=== PATIENT | male | born 1955 | race Caucasian/White ===

== ENCOUNTER 2017-09-04 18:54 | Emergency (ER) | payer MEDICAID ==
[~2017-09-04] VITALS: Ht 180.3 cm; Wt 79.5 kg
[~2017-09-04 18:54] MED LIST: ALBU8.5H8 IH; AZIT250T PO; CARI250T PO; CEPH-571 PO; CHLO118M PO; HYDR-569 PO; METH4TAB3 PO; METH500T PO; PRED10TA PO; TRAM50TA2 PO
[2017-09-04] MEDS ORDERED: ondansetron/PF 4mg/2ml inj IV ONE (19:30)
[2017-09-04] MEDS ORDERED: morphine 5 MG/ML injection IV ONE (19:30)
[2017-09-04] MEDS ORDERED: propofol 10mg/ml 20ml vial IV ONE (20:55)
[2017-09-04] MEDS ORDERED: ketamine 50 mg/ml 10ml vial IV ONE (20:55)
[2017-09-04] MEDS ORDERED: HYDROmorphone 1 mg/ml syringe IV ONE (21:05)
[2017-09-04] MEDS ORDERED: HYDR-3965 PO (21:58)
[2017-09-04 22:24] VITALS: BP 133/94
== END 2017-09-04 22:33 | disposition home or self-care (01) ==
LOC: ER 18:55
DX: S82.431A Displaced oblique fracture of shaft of right fibula, initial encounter for closed fracture (principal); S82.301A Unspecified fracture of lower end of right tibia, initial encounter for closed fracture; G89.29 Other chronic pain; Z79.899 Other long term (current) drug therapy; Z59.0 Homelessness; V19.9XXA Pedal cyclist (driver) (passenger) injured in unspecified traffic accident, initial encounter; Y93.55 Activity, bike riding; Y92.488 Other paved roadways as the place of occurrence of the external cause; Y99.8 Other external cause status
CPT/HCPCS: 27752; 73590; 73600; 94760; 96374; 96375; 99285; A6449; J1170; J2270; J2405; J2704; A4620

== ENCOUNTER 2017-09-08 13:15 | Emergency (ER) | payer MEDICAID ==
[~2017-09-08] VITALS: Ht 180.3 cm; Wt 79.5 kg
[~2017-09-08 13:15] MED LIST changes: +HYDR-3965 PO
[2017-09-08] MEDS ORDERED: HYDR-3965 PO (13:40)
[2017-09-08] MEDS ORDERED: ONDA4TAB9 PO (13:40)
[2017-09-08 16:09] VITALS: BP 130/80
[2017-09-12] MEDS ORDERED: BACDS PO (19:00)
== END 2017-09-08 16:12 | disposition home or self-care (01) ==
LOC: ER 13:17
DX: S82.871D Displaced pilon fracture of right tibia, subsequent encounter for closed fracture with routine healing (principal); S82.831D Other fracture of upper and lower end of right fibula, subsequent encounter for closed fracture with routine healing; G89.29 Other chronic pain; Z59.0 Homelessness; Z79.899 Other long term (current) drug therapy; V19.9XXD Pedal cyclist (driver) (passenger) injured in unspecified traffic accident, subsequent encounter
CPT/HCPCS: 29505; 73590; 99284; A6449

== ENCOUNTER 2017-09-16 13:44 | Outpatient (CLI) | payer MEDICAID ==
[2017-09-16 13:44] VITALS: BP 127/73
[~2017-09-16 13:44] MED LIST changes: +BACDS PO; +ONDA4TAB9 PO
== END 2017-09-16 15:00 | disposition home or self-care (01) ==
LOC: ORTHO 13:44
PROVIDERS: ATTEND Nurse Practitioner Family
DX: S82.241A Displaced spiral fracture of shaft of right tibia, initial encounter for closed fracture (principal); S82.831A Other fracture of upper and lower end of right fibula, initial encounter for closed fracture; B19.20 Unspecified viral hepatitis C without hepatic coma; F41.9 Anxiety disorder, unspecified; J44.9 Chronic obstructive pulmonary disease, unspecified; F12.90 Cannabis use, unspecified, uncomplicated; R29.6 Repeated falls; F17.210 Nicotine dependence, cigarettes, uncomplicated; Z72.89 Other problems related to lifestyle; Z59.0 Homelessness; Z79.899 Other long term (current) drug therapy; X58.XXXA Exposure to other specified factors, initial encounter; Y93.89 Activity, other specified; Y92.89 Other specified places as the place of occurrence of the external cause; Y99.8 Other external cause status
CPT/HCPCS: 29505; A6449

== ENCOUNTER 2017-09-29 11:39 | Observation (INO) | payer MEDICAID ==
[2017-09-28 13:49] LABS: BASOPHILS % (AUTO) 0.5 % (0-1); EOSINOPHILS # (AUTO) 0.3 X10'3 (0-0.9); EOSINOPHILS % (AUTO) 4.3 % (0-6); LYMPHOCYTES # (AUTO) 2.8 X10'3 (1.1-4.8); LYMPHOCYTES % (AUTO) 36.2 % (21-51); MEAN CORPUSCULAR HEMOGLOBIN 32.1 PG (27.0-31.0); MEAN CORPUSCULAR HGB CONC 35.1 % (33.0-36.5); MEAN CORPUSCULAR VOLUME 91.4 FL (78-98); MEAN PLATELET VOLUME 8.8 FL (7.4-10.4); MONOCYTES # (AUTO) 0.5 X10'3 (0-0.9); MONOCYTES % (AUTO) 6.9 % (2-12); NEUTROPHILS % (AUTO) 52.1 % (42-75); PRE OP HEMATOCRIT 45.6 % (42.0-52.0); PRE OP PLATELET COUNT 235 X10'3 (140-440); RED BLOOD COUNT 4.99 X10'6 (4.70-6.10); RED CELL DISTRIBUTION WIDTH 13.5 % (11.5-14.5)
[2017-09-28 14:06] LABS: ALBUMIN 2.9 G/DL (3.4-5.0); ALBUMIN/GLOBULIN RATIO 0.7 (1.1-1.5); ALKALINE PHOSPHATASE 199 IU/L (46-116); BLOOD UREA NITROGEN 11 MG/DL (7-18); BUN/CREATININE RATIO 12.2 (5.4-32.0); CHLORIDE 111 MMOL/L (99-107); PRE OP ALT 65 U/L (30-65); PRE OP ANION GAP 9 (8-16); PRE OP AST 45 U/L (10-37); PRE OP BILIRUB, TOTAL 0.7 MG/DL (0.0-1.0); PRE OP GLUCOSE 103 MG/DL (70-104); PRE OP POTASSIUM 3.8 MMOL/L (3.4-5.1); PRE OP SODIUM 144 MMOL/L (135-145); TOTAL CARBON DIOXIDE 24.5 MMOL/L (24-32); TOTAL PROTEIN 7.2 G/DL (6.4-8.2); eGFR 86 ML/MIN
[2017-09-29] VITALS (15 sets, daily range): BP systolic 100–146; BP diastolic 67–95
[~2017-09-29] VITALS: Ht 180.3 cm; Wt 79.5 kg
[~2017-09-29 11:39] MED LIST changes: -BACDS PO; +VANCOMYCIN INJ 1000 MG in NORMAL SALINE 250ml IV.SOLN IV ONE; +cefazolin/dext.iso 2gm/50ml 50 ML IV ONE; +famotidine 20mg tablet PO ONE
[2017-09-29] MEDS ORDERED: sevoflurane 250ml liquid IH ONE (12:42)
[2017-09-29] MEDS ORDERED: fentaNYL/PF 50MCG/1 ML 2ML syringe ONE ×2 (12:47→14:41)
[2017-09-29] MEDS ORDERED: midazolam 2 mg/2 ml injection ONE (12:47)
[2017-09-29] MEDS ORDERED: ceFAZolin 1000mg inj ONE (12:48)
[2017-09-29] MEDS ORDERED: BUPIVAcaine 0.5% inj/PF 30 ML ONE (12:48)
[2017-09-29] MEDS ORDERED: propofol inj 20 ML IV ONE (12:56)
[2017-09-29] MEDS ORDERED: rocuronium 10mg/ml inj IV ONE (12:57)
[2017-09-29] MEDS ORDERED: BUPIVAcaine 0.5% inj/PF 30 ml vial IJ ONE (13:33)
[2017-09-29] MEDS ORDERED: ringers solution, lacted 1,000 ML IV SCH (13:36)
[2017-09-29] MEDS ORDERED: proCHLORperazine 10 MG/2 ml inj IV PRN (13:40)
[2017-09-29] MEDS ORDERED: morphine 2 MG/ML inj. syringe IV PRN (13:40)
[2017-09-29] MEDS ORDERED: meperidine/PF 25mg/ml syringe IV PRN ×3 (13:40)
[2017-09-29] MEDS ORDERED: ondansetron/PF 4mg/2ml inj IV PRN (13:40)
[2017-09-29] MEDS ORDERED: ketorolac trometh. 30mg/ml inj. ONE (14:48)
[2017-09-29] MEDS ORDERED: morphine 8mg/ml inj. syringe ONE (15:19)
[2017-09-29] MEDS ORDERED: cyclobenzaprine 10mg tablet PO PRN (15:20)
[2017-09-29] MEDS: morphine 2 MG/ML inj. syringe IV PRN ×2 (15:26→15:36)
[2017-09-29] MEDS ORDERED: dextrose 5%-1/2 normal saline 1,000 ML IV SCH (19:20)
[2017-09-29] MEDS ORDERED: morphine 5 MG/ML injection IV PRN ×2 (19:55)
[2017-09-29] MEDS ORDERED: HYDROcodone/acetaminophen 10/325mg tab PO PRN (19:55)
[2017-09-29] MEDS: traMADol 50MG tablet PO SCH (20:00)
[2017-09-29] MEDS: vancomycin/NS 1 GM ADD-VANTAGE 250 ML IV SCH (20:54)
[2017-09-29] MEDS: HYDROcodone/acetaminophen 10/325mg tab PO PRN (21:01)
[2017-09-30] MEDS: HYDROcodone/acetaminophen 10/325mg tab PO PRN ×3 (00:53→10:38)
[2017-09-30] MEDS: cefazolin 1gm/NS 100mL 100 ML IV SCH ×2 (00:54→08:14)
[2017-09-30 02:00] VITALS: BP 130/82
[2017-09-30] MEDS: traMADol 50MG tablet PO SCH ×2 (02:00→08:13)
[2017-09-30 06:00] VITALS: BP 122/82
[2017-09-30] MEDS: vancomycin/NS 1 GM ADD-VANTAGE 250 ML IV SCH (08:48)
[2017-09-30] MEDS ORDERED: WALKERFR (09:46)
== END 2017-09-30 11:30 | disposition home or self-care (01) ==
LOC: PAS 11:39 → ORTHO 4S 18:14
PROVIDERS: ADMIT Orthopaedic Surgery; ATTEND Orthopaedic Surgery
DX: S82.301A Unspecified fracture of lower end of right tibia, initial encounter for closed fracture (principal); S82.201A Unspecified fracture of shaft of right tibia, initial encounter for closed fracture; S82.401A Unspecified fracture of shaft of right fibula, initial encounter for closed fracture; B19.20 Unspecified viral hepatitis C without hepatic coma; G89.29 Other chronic pain; M54.9 Dorsalgia, unspecified; J44.9 Chronic obstructive pulmonary disease, unspecified; G43.909 Migraine, unspecified, not intractable, without status migrainosus; M19.90 Unspecified osteoarthritis, unspecified site; F41.9 Anxiety disorder, unspecified; X58.XXXA Exposure to other specified factors, initial encounter; Y93.89 Activity, other specified; Y92.89 Other specified places as the place of occurrence of the external cause; Y99.8 Other external cause status
CPT/HCPCS: 27827; 36415; 71046; 80053; 85025; 87070; 96365; 96366; 96368; 96375; 96376; 97116; 97161; G0378; J0690; J1885; J2250; J2270; J2704; J3010; J3370; J3490; J7120; A7000

== ENCOUNTER 2017-10-09 10:35 | Outpatient (CLI) | payer MEDICAID ==
[~2017-10-09 10:35] MED LIST changes: -VANCOMYCIN INJ 1000 MG in NORMAL SALINE 250ml IV.SOLN IV ONE; +WALKERFR; -cefazolin/dext.iso 2gm/50ml 50 ML IV ONE; -famotidine 20mg tablet PO ONE
[2017-10-09 10:44] VITALS: BP 151/86
== END 2017-10-09 11:40 | disposition home or self-care (01) ==
LOC: ORTHO 10:35
PROVIDERS: ATTEND Nurse Practitioner Family
DX: S82.441D Displaced spiral fracture of shaft of right fibula, subsequent encounter for closed fracture with routine healing (principal); S82.101D Unspecified fracture of upper end of right tibia, subsequent encounter for closed fracture with routine healing; F17.210 Nicotine dependence, cigarettes, uncomplicated; B19.20 Unspecified viral hepatitis C without hepatic coma; F32.9 Major depressive disorder, single episode, unspecified; Z59.0 Homelessness; Z98.890 Other specified postprocedural states; Z56.0 Unemployment, unspecified; X58.XXXD Exposure to other specified factors, subsequent encounter
CPT/HCPCS: 29515; A6446; A6449

== ENCOUNTER 2017-10-16 11:10 | Outpatient (CLI) | payer MEDICAID ==
[2017-10-16 11:04] VITALS: BP 135/86
[~2017-10-16 11:10] MED LIST changes: -HYDR-3965 PO; -ONDA4TAB9 PO
== END 2017-10-16 12:11 | disposition home or self-care (01) ==
LOC: ORTHO 11:10
PROVIDERS: ATTEND Nurse Practitioner Family
DX: S82.241D Displaced spiral fracture of shaft of right tibia, subsequent encounter for closed fracture with routine healing (principal); F17.210 Nicotine dependence, cigarettes, uncomplicated; J40 Bronchitis, not specified as acute or chronic; B18.2 Chronic viral hepatitis C; Z59.0 Homelessness; Z56.0 Unemployment, unspecified; X58.XXXD Exposure to other specified factors, subsequent encounter
CPT/HCPCS: 73600

== ENCOUNTER 2017-11-13 11:25 | Outpatient (CLI) | payer MEDICAID ==
[2017-11-13 11:24] VITALS: BP 144/91
[~2017-11-13 11:25] MED LIST changes: -AZIT250T PO; -CEPH-571 PO; -HYDR-569 PO; -METH4TAB3 PO; -METH500T PO; -PRED10TA PO; +SULF1TAB49 PO
== END 2017-11-13 11:50 | disposition home or self-care (01) ==
LOC: ORTHO 11:25
PROVIDERS: ATTEND Nurse Practitioner Family
DX: S82.241D Displaced spiral fracture of shaft of right tibia, subsequent encounter for closed fracture with routine healing (principal); B19.20 Unspecified viral hepatitis C without hepatic coma; F17.210 Nicotine dependence, cigarettes, uncomplicated; F32.9 Major depressive disorder, single episode, unspecified; Z59.0 Homelessness; Z56.0 Unemployment, unspecified; X58.XXXD Exposure to other specified factors, subsequent encounter
CPT/HCPCS: 73600; 99213

== ENCOUNTER 2017-11-20 09:35 | Outpatient (CLI) | payer MEDICAID ==
[2017-11-20 09:44] VITALS: BP 147/98
== END 2017-11-20 10:05 | disposition home or self-care (01) ==
LOC: ORTHO 09:35
PROVIDERS: ATTEND Nurse Practitioner Family
DX: S82.241D Displaced spiral fracture of shaft of right tibia, subsequent encounter for closed fracture with routine healing (principal); F32.9 Major depressive disorder, single episode, unspecified; B19.20 Unspecified viral hepatitis C without hepatic coma; Z59.0 Homelessness; F17.210 Nicotine dependence, cigarettes, uncomplicated; T81.4XXD Infection following a procedure, subsequent encounter; L03.115 Cellulitis of right lower limb; Z56.0 Unemployment, unspecified; X58.XXXD Exposure to other specified factors, subsequent encounter
CPT/HCPCS: 99212

== ENCOUNTER 2017-12-04 14:01 | Outpatient (CLI) | payer MEDICAID ==
[~2017-12-04 14:01] MED LIST changes: -SULF1TAB49 PO
== END 2017-12-04 14:35 | disposition home or self-care (01) ==
LOC: ORTHO 14:01
PROVIDERS: ATTEND Nurse Practitioner Family
DX: S82.241D Displaced spiral fracture of shaft of right tibia, subsequent encounter for closed fracture with routine healing (principal); F17.210 Nicotine dependence, cigarettes, uncomplicated; B19.20 Unspecified viral hepatitis C without hepatic coma; F32.9 Major depressive disorder, single episode, unspecified; Z59.0 Homelessness; X58.XXXD Exposure to other specified factors, subsequent encounter
CPT/HCPCS: 73600; 99213

== ENCOUNTER 2017-12-25 15:44 | Emergency (ER) | payer MEDICAID ==
[~2017-12-25] VITALS: Ht 180.3 cm; Wt 86.0 kg
[2017-12-25 16:00] VITALS: BP 135/88
[2017-12-25 16:21] LABS: BASOPHILS % (AUTO) 0.6 % (0-1); EOSINOPHILS # (AUTO) 0.2 X10'3 (0-0.9); EOSINOPHILS % (AUTO) 2.7 % (0-6); HEMATOCRIT 45.1 % (42.0-52.0); LYMPHOCYTES # (AUTO) 2.9 X10'3 (1.1-4.8); LYMPHOCYTES % (AUTO) 37.8 % (21-51); MEAN CORPUSCULAR HGB CONC 35.6 % (33.0-36.5); MEAN CORPUSCULAR VOLUME 89.9 FL (78-98); MEAN PLATELET VOLUME 9.4 FL (7.4-10.4); MONOCYTES # (AUTO) 0.6 X10'3 (0-0.9); MONOCYTES % (AUTO) 8.2 % (2-12); NEUTROPHILS # (AUTO) 3.8 X10'3 (1.8-7.7); NEUTROPHILS % (AUTO) 50.7 % (42-75); PLATELET COUNT 187 X10'3 (140-440); RED BLOOD COUNT 5.01 X10'6 (4.70-6.10); RED CELL DISTRIBUTION WIDTH 13.8 % (11.5-14.5); WHITE BLOOD COUNT 7.6 X10'3 (4.5-11.0)
[2017-12-25 16:31] LABS: PARTIAL THROMBOPLASTIN TIME 29 SECONDS (22-32); PROTHROMBIN TIME 10.8 SECONDS (9.0-12.0)
[2017-12-25 16:38] LABS: ALANINE AMINOTRANSFERASE 124 U/L (12-78); ALBUMIN/GLOBULIN RATIO 0.8 (1.1-1.5); ALKALINE PHOSPHATASE 173 IU/L (46-116); ANION GAP 9 (8-16); ASPARTATE AMINO TRANSFERASE 137 U/L (10-37); BILIRUBIN,TOTAL 1.1 MG/DL (0.1-1.0); BLOOD UREA NITROGEN 13 MG/DL (7-18); BUN/CREATININE RATIO 15.7 (5.4-32.0); CHLORIDE 108 MMOL/L (99-107); CREATININE 0.83 MG/DL (0.60-1.10); GLUCOSE 103 MG/DL (70-104); POTASSIUM 3.7 MMOL/L (3.5-5.1); SODIUM 142 MMOL/L (135-145); TOTAL CARBON DIOXIDE 25.2 MMOL/L (24-32); TOTAL PROTEIN 6.8 G/DL (6.4-8.2); eGFR > 90 ML/MIN
== END 2017-12-25 19:39 | disposition left against medical advice (07) ==
LOC: ER 15:45
DX: R00.2 Palpitations (principal); Z53.21 Procedure and treatment not carried out due to patient leaving prior to being seen by health care provider
CPT/HCPCS: 36415; 71045; 80053; 84484; 85025; 85610; 85730; 93005; 99281

== ENCOUNTER → 2017-12-25 | Outpatient (CLI) | payer MEDICAID ==
[2017-12-25 14:51] VITALS: BP 133/88
== END ==
LOC: ORTHO 14:52
PROVIDERS: ATTEND Nurse Practitioner Family
DX: S82.301D Unspecified fracture of lower end of right tibia, subsequent encounter for closed fracture with routine healing (principal); L03.115 Cellulitis of right lower limb; T81.4XXD Infection following a procedure, subsequent encounter; J44.9 Chronic obstructive pulmonary disease, unspecified; B19.20 Unspecified viral hepatitis C without hepatic coma; F12.90 Cannabis use, unspecified, uncomplicated; F32.9 Major depressive disorder, single episode, unspecified; F17.210 Nicotine dependence, cigarettes, uncomplicated; I48.91 Unspecified atrial fibrillation; Z59.0 Homelessness; X58.XXXD Exposure to other specified factors, subsequent encounter
CPT/HCPCS: 73600; 99213

== ENCOUNTER 2018-02-04 13:39 | Outpatient (CLI) | payer MEDICAID | END 2018-02-04 23:59 | disposition home or self-care (01) | LOC: CARD DIAG 13:39 | PROVIDERS: ATTEND Registered Nurse | DX: I08.1 Rheumatic disorders of both mitral and tricuspid valves (principal); J44.9 Chronic obstructive pulmonary disease, unspecified; F17.200 Nicotine dependence, unspecified, uncomplicated | CPT/HCPCS: 93306 ==

== ENCOUNTER 2018-02-19 14:19 | Emergency (ER) | payer MEDICAID ==
[~2018-02-19] VITALS: Ht 610.5 cm; Wt 80.0 kg
[2018-02-19] MEDS ORDERED: acetaminophen 325mg tablet PO ONE (15:15)
[2018-02-19] MEDS ORDERED: LIDOcaine 1.5% w/epinephrine 1:200,000 5ml ampul IJ ONE (15:15)
[2018-02-19] MEDS ORDERED: ibuprofen tablet 400 MG TABLET PO ONE (15:15)
[2018-02-19] MEDS ORDERED: AMOX-580 PO (15:34)
[2018-02-19 16:44] VITALS: BP 140/70
== END 2018-02-19 16:46 | disposition home or self-care (01) ==
LOC: ER 14:20
DX: S01.511A Laceration without foreign body of lip, initial encounter (principal); L08.9 Local infection of the skin and subcutaneous tissue, unspecified; J44.9 Chronic obstructive pulmonary disease, unspecified; G43.909 Migraine, unspecified, not intractable, without status migrainosus; F12.90 Cannabis use, unspecified, uncomplicated; Z59.0 Homelessness; Z56.0 Unemployment, unspecified; Z79.899 Other long term (current) drug therapy; W21.03XA Struck by baseball, initial encounter; Y93.89 Activity, other specified; Y92.89 Other specified places as the place of occurrence of the external cause; Y99.8 Other external cause status
CPT/HCPCS: 99283; A6449; J3490

== ENCOUNTER 2018-10-18 08:07 | Emergency (ER) | payer MEDICAID ==
[~2018-10-18] VITALS: Ht 180.3 cm; Wt 71.0 kg
[2018-10-18 08:17] VITALS: BP 156/81
[2018-10-18] MEDS ORDERED: sulfamethoxazole/trimethoprim DS (800/160mg) tablet PO ONE (08:20)
[2018-10-18] MEDS ORDERED: TRAM50TA2 PO (08:58)
[2018-10-18] MEDS ORDERED: SULF1TAB49 PO (08:58)
[2018-10-18] MEDS ORDERED: LIDOcaine 1% w/epiNEPHrine 1:200,000 30ml vial IM ONE (09:00)
[2018-10-18] MEDS ORDERED: TETanus/Pertussis (Acell)/Diphther VAC/PF (Tdap-Adult) 0.5ml syringe IM ONE (09:00)
--- NOTE | 2018-10-20 10:50 | NUR ---
RTC from patient. Patient initally treated with the wrong antibiotic. Doxycycline 100mg called in to [facility] on [address].
== END 2018-10-18 10:11 | disposition home or self-care (01) ==
LOC: ER 08:08
DX: L02.415 Cutaneous abscess of right lower limb (principal); G43.909 Migraine, unspecified, not intractable, without status migrainosus; J44.9 Chronic obstructive pulmonary disease, unspecified; G89.29 Other chronic pain; M54.9 Dorsalgia, unspecified; M19.90 Unspecified osteoarthritis, unspecified site; F12.90 Cannabis use, unspecified, uncomplicated; Z56.0 Unemployment, unspecified; Z59.0 Homelessness
CPT/HCPCS: 10060; 87070; 87077; 87186; 90471; 90715; 99283; J3490

== ENCOUNTER 2018-12-04 10:18 | Emergency (ER) | payer MEDICAID ==
[~2018-12-04] VITALS: Ht 180.3 cm; Wt 81.8 kg
[2018-12-04 10:29] VITALS: BP 116/76
[2018-12-04] MEDS ORDERED: HYDROcodone/acetaminophen 5mg/325mg tablet PO ONE (11:55)
[2018-12-04] MEDS ORDERED: NAPR-56 PO (11:59)
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
== END 2018-12-04 12:20 | disposition home or self-care (01) ==
LOC: ER 10:19
DX: S06.0X0A Concussion without loss of consciousness, initial encounter (principal); S01.01XA Laceration without foreign body of scalp, initial encounter; G43.909 Migraine, unspecified, not intractable, without status migrainosus; J44.9 Chronic obstructive pulmonary disease, unspecified; G89.29 Other chronic pain; M54.9 Dorsalgia, unspecified; M19.90 Unspecified osteoarthritis, unspecified site; F12.90 Cannabis use, unspecified, uncomplicated; Z56.0 Unemployment, unspecified; Y04.8XXA Assault by other bodily force, initial encounter; Y93.89 Activity, other specified; Y92.89 Other specified places as the place of occurrence of the external cause; Y99.8 Other external cause status
CPT/HCPCS: 99284